=== PATIENT | female | born 1995 | race Caucasian/White ===

== ENCOUNTER 2021-10-23 12:06 | Emergency (ER) | payer OTHER ==
[2021-10-23 13:25] LABS: BASOPHIL 0.3 % (0-2); EOSINOPHIL 1.4 % (0-5); HCT 40.4 % (37.0-47.0); HGB 13.9 g/dl (12.5-16.0); LYMPHOCYTE 27.3 % (15-48); MCH 33.3 pg (25.0-31.0); MCHC 34.4 g/dL (32.0-36.0); MCV 96.9 fL (78.0-100.0); MONOCYTE 5.9 % (0-12); MPV 11.3 fL (6.0-9.5); NEUTROPHIL 64.6 % (41-80); NRBC 0; PLT 157 K/uL (150-400); RBC 4.17 M/uL (4.20-5.40); RDW 12.1 % (11.5-14.0); WBC 8.8 K/uL (4.0-10.5)
[2021-10-23 13:39] LABS: ALBUMIN 4.2 g/dL (3.4-5.0); BILIRUBIN - TOTAL 0.3 mg/dL (0.2-1.0); BUN/CREAT RATIO (CALC) 17.2 RATIO; CREATININE 0.58 mg/dL (0.51-0.95); TOTAL PROTEIN 7.2 g/dL (6.4-8.2)
[2021-10-23 13:54] LABS: BILIRUBIN NEGATIVE (NEGATIVE); BLOOD NEGATIVE Ery/uL (NEGATIVE); CLARITY CLOUDY (CLEAR); COLOR YELLOW (YELLOW); GLUCOSE (U) NORMAL (NORMAL); LEUKOCYTES NEGATIVE Leu/uL (NEGATIVE); NITRITE NEGATIVE (NEGATIVE); PROTEIN NEGATIVE (NEGATIVE); SPECIFIC GRAVITY 1.025 (1.001-1.030); UROBILINOGEN 0.2 mg/dL (0.2-1.0)
[2021-10-23] MEDS ORDERED: METRONIDAZOLE500 MG PO (14:02)
[2021-10-25 00:07] LABS: CHLAMYDIA TRACHOMATIS, NAA Negative (Negative); NEISSERIA GONORRHOEAE, NAA Negative (Negative)
== END 2021-10-23 14:30 | disposition home or self-care (01) ==
LOC: FER 12:06
PROVIDERS: Physician Assistant
DX: N76.0 Acute vaginitis (principal)
CPT/HCPCS: 36415; 80053; 81003; 85025; 87210; 87491; 87591; 99284; J7030